=== PATIENT | female | born 1975 | race Caucasian/White ===

== ENCOUNTER 2021-01-03 17:44 | Emergency (ER) | payer MEDICARE ==
[~2021-01-03] VITALS: Ht 167.6 cm; Wt 61.4 kg
[~2021-01-03 17:44] MED LIST: ALPR1TAB PO; FLUO20CA43 PO; HYDR-3964 PO; PHEN100C12 PO
[2021-01-03 18:14] VITALS: BP 126/87
== END 2021-01-04 02:29 | disposition home or self-care (01) ==
LOC: ER 17:44
DX: N81.4 Uterovaginal prolapse, unspecified (principal); M35.00 Sjogren syndrome, unspecified; G43.909 Migraine, unspecified, not intractable, without status migrainosus; J45.909 Unspecified asthma, uncomplicated; F12.90 Cannabis use, unspecified, uncomplicated; Z72.89 Other problems related to lifestyle; Z88.0 Allergy status to penicillin; Z88.8 Allergy status to other drugs, medicaments and biological substances; Z79.899 Other long term (current) drug therapy; Z98.51 Tubal ligation status
CPT/HCPCS: 99284